=== PATIENT | female | born 1945 ===

== ENCOUNTER 2023-06-22 13:15 | Inpatient (IN) ==
[2023-06-22] MEDS ORDERED: 0.9 % SODIUM CHLORIDE 1,000 ML IV ONE (13:41)
[2023-06-22] MEDS ORDERED: 0.9 % SODIUM CHLORIDE 500 ML IV ONE (13:47)
[2023-06-22 14:06] LABS: POC Calcium, Ionized 1.21 (1.16-1.32); POC Creatinine 1.6 (0.6-1.2); POC Potassium 6.7 (3.3-5.1)
[2023-06-22] MEDS ORDERED: CALCIUM GLUCONATE 4.65 MEQ in DEXTROSE 5% IN WATER 50 ML IV ONE (14:31)
[2023-06-22 14:55] LABS: Basophils # (Auto) 0.07 K/mcL (0.00-0.30); Basophils % (Auto) 0.5 % (0.0-2.0); Eosinophils # (Auto) 0.16 K/mcL (0.00-0.70); Eosinophils % (Auto) 1.2 % (0.0-7.0); Hematocrit 32.4 % (34.1-44.9); Hemoglobin 10.5 g/dL (11.2-15.7); Lymphocytes # (Auto) 1.11 K/mcL (1.50-4.80); Lymphocytes % (Auto) 8.5 % (15.5-49.0); Mean Cell Volume 93.1 fL (80.0-100.0); Mean Corpuscular HGB Conc 32.4 g/dL (31.0-36.0); Mean Platelet Volume 11.3 fL (8.8-12.5); Monocytes # (Auto) 1.31 K/mcL (0.10-0.90); Neutrophils % (Auto) 79.3 % (38.0-78.0); Platelet Count 346 K/mcL (140-440); RBC 3.48 M/mcL (3.59-5.38); Red Cell Distribution Width 14.4 % (11.5-14.5); WBC 13.1 K/mcL (4.5-11.0)
[2023-06-22 16:38] LABS: Appearance,Urine CLOUDY (Clear); Bacteria,Urine MANY /hpf (0); Bilirubin,Urine Negative (Negative); Color,Urine AMBER; Culture Indicated,Urine yes; Glucose,Urine (UA) Negative (Negative); Ketones,Urine Negative (Negative); Leukocyte Esterase,Urine 250 /uL (Negative); Nitrate,Urine POS (Negative); Protein,Urine 30 mg/dL (Negative); Specific Gravity,Urine 1.015 (1.000-1.035); Urine Blood Negative (Negative); Urine Hyaline Cast 28 /lph (0-2); Urine RBC 0 /hpf (0-3); Urine Squamous Epithelial Cell 0 /hpf (0-4); Urine WBC 27 /hpf (0-4); Urobilinogen,Urine Negative
[2023-06-22 16:50] LABS: ALT/SGPT 21 U/L (<40); AST/SGOT 32 U/L (<32); Albumin 2.2 gm/dL (3.2-5.2); Albumin/Globulin Ratio 0.4 (1.0-2.3); Alkaline Phosphatase 89 U/L (39-117); Bilirubin,Total 0.4 mg/dL (0.1-1.0); Blood Urea Nitrogen 47 mg/dL (8-23); Calcium 9.7 mg/dL (8.6-10.4); Carbon Dioxide 18 mmol/L (22-30); Chloride 100 mmol/L (96-108); Globulin 4.9 gm/dL (2.2-3.7); Glomerular Filtration Rate 34; Glucose 384 mg/dL (70-105)
[2023-06-22] MEDS ORDERED: FUROSEMIDE 20 MG/2 ML VIAL IV ONE (16:56)
[2023-06-22] MEDS ORDERED: INSULIN REGULAR, HUMAN 1 UNIT/0.01 ML UNIT IV ONE (16:57)
[2023-06-22] MEDS ORDERED: cefTRIAXone 1 GM VIAL IV ONE (16:59)
[2023-06-22] MEDS ORDERED: FUROSEMIDE 40 MG/4 ML VIAL IV SCH (18:17)
[2023-06-22] MEDS ORDERED: DEXTROSE 31 GM ORAL.SUSP PO PRN (20:52)
[2023-06-22] MEDS ORDERED: DEXTROSE 50% 50 ML VIAL IV PRN (20:52)
[2023-06-22] MEDS ORDERED: ALBUTEROL SULFATE 2.5 MG/3 ML NEBULIZER NEB PRN (20:52)
[2023-06-22] MEDS ORDERED: SENNOSIDES 1 TABLET PO PRN (20:52)
[2023-06-22] MEDS ORDERED: INSULIN GLARGINE, HUMAN 1 UNIT/0.01 ML SQ SCH (21:00)
[2023-06-22] MEDS: DOCUSATE SODIUM 100 MG CAPSULE PO SCH (22:13)
[2023-06-22] MEDS: HYDROcodone/APAP 5/325MG TABLET PO PRN (22:13)
[2023-06-22] MEDS: HEPARIN 5,000 UNIT/ML VIAL SQ SCH (22:13)
[2023-06-22] MEDS: 0.9 % SODIUM CHLORIDE 10 ML SYRINGE IV SCH (22:13)
[2023-06-22] MEDS: INSULIN LISPRO 1 UNIT/0.01 ML UNIT SQ SCH (22:14)
[2023-06-23] MEDS: HYDROcodone/APAP 5/325MG TABLET PO PRN ×5 (02:21→18:01)
[2023-06-23] MEDS: 0.9 % SODIUM CHLORIDE 10 ML SYRINGE IV SCH ×3 (05:26→20:43)
[2023-06-23 06:54] LABS: Basophils # (Auto) 0.07 K/mcL (0.00-0.30); Basophils % (Auto) 0.6 % (0.0-2.0); Eosinophils # (Auto) 0.24 K/mcL (0.00-0.70); Hematocrit 31.3 % (34.1-44.9); Hemoglobin 9.8 g/dL (11.2-15.7); Lymphocytes # (Auto) 1.43 K/mcL (1.50-4.80); Lymphocytes % (Auto) 11.9 % (15.5-49.0); Mean Cell Volume 95.1 fL (80.0-100.0); Mean Corpuscular HGB Conc 31.3 g/dL (31.0-36.0); Mean Platelet Volume 10.3 fL (8.8-12.5); Monocytes # (Auto) 1.49 K/mcL (0.10-0.90); Monocytes % (Auto) 12.4 % (1.0-12.0); Neutrophils % (Auto) 72.6 % (38.0-78.0); Platelet Count 346 K/mcL (140-440); RBC 3.29 M/mcL (3.59-5.38); Red Cell Distribution Width 14.3 % (11.5-14.5)
[2023-06-23] MEDS ORDERED: INSULIN LISPRO 1 UNIT/0.01 ML UNIT SQ SCH (07:30)
[2023-06-23 08:00] LABS: Thyroid Stimulating Hormone 33.95 uIU/mL (0.27-5.01)
[2023-06-23] MEDS: INSULIN LISPRO 1 UNIT/0.01 ML UNIT SQ SCH ×5 (08:05→20:43)
[2023-06-23] MEDS: FUROSEMIDE 40 MG/4 ML VIAL IV SCH ×2 (08:05→08:51)
[2023-06-23 08:16] LABS: Albumin 2.1 gm/dL (3.2-5.2); Blood Urea Nitrogen 51 mg/dL (8-23); Calcium 9.7 mg/dL (8.6-10.4); Carbon Dioxide 20 mmol/L (22-30); Chloride 104 mmol/L (96-108); Glomerular Filtration Rate 22; Glucose 168 mg/dL (70-105); Phosphorous 3.4 mg/dL (2.5-4.5)
[2023-06-23] MEDS: HEPARIN 5,000 UNIT/ML VIAL SQ SCH (08:30)
[2023-06-23] MEDS: DOCUSATE SODIUM 100 MG CAPSULE PO SCH ×2 (08:30→20:42)
[2023-06-23] MEDS: cefTRIAXone 1 GM VIAL IV SCH (08:50)
[2023-06-23 09:31] LABS: Estimated Average Glucose(eAG) 252 mg/dL; Hemoglobin A1C 10.4 % Hgb (4.0-6.0)
[2023-06-23] MEDS: APIXABAN 5 MG TABLET PO SCH ×2 (11:06→20:42)
[2023-06-23] MEDS: ONDANSETRON 4 MG/2 ML VIAL IV PRN (14:39)
[2023-06-23] MEDS: ACETAMINOPHEN 325 MG TABLET PO PRN (17:15)
[2023-06-23] MEDS: ATORVASTATIN 40 MG TABLET PO SCH (20:42)
[2023-06-23] MEDS: INSULIN GLARGINE, HUMAN 1 UNIT/0.01 ML SQ SCH (20:43)
[2023-06-24] MEDS: HYDROcodone/APAP 5/325MG TABLET PO PRN ×4 (00:35→20:50)
[2023-06-24] MEDS: ONDANSETRON 4 MG/2 ML VIAL IV PRN (02:12)
[2023-06-24] MEDS: 0.9 % SODIUM CHLORIDE 10 ML SYRINGE IV SCH ×4 (02:13→20:54)
[2023-06-24 07:12] LABS: Albumin 2.3 gm/dL (3.2-5.2); Blood Urea Nitrogen 57 mg/dL (8-23); Calcium 9.5 mg/dL (8.6-10.4); Carbon Dioxide 19 mmol/L (22-30); Chloride 99 mmol/L (96-108); Glomerular Filtration Rate 17; Glucose 138 mg/dL (70-105)
[2023-06-24 07:33] LABS: Basophils # (Auto) 0.07 K/mcL (0.00-0.30); Basophils % (Auto) 0.6 % (0.0-2.0); Eosinophils # (Auto) 0.38 K/mcL (0.00-0.70); Eosinophils % (Auto) 3.4 % (0.0-7.0); Hematocrit 46.6 % (34.1-44.9); Lymphocytes # (Auto) 1.19 K/mcL (1.50-4.80); Lymphocytes % (Auto) 10.7 % (15.5-49.0); Mean Cell Volume 92.5 fL (80.0-100.0); Mean Corpuscular HGB Conc 32.2 g/dL (31.0-36.0); Mean Platelet Volume 10.8 fL (8.8-12.5); Monocytes # (Auto) 1.09 K/mcL (0.10-0.90); Monocytes % (Auto) 9.8 % (1.0-12.0); Neutrophils % (Auto) 74.7 % (38.0-78.0); Platelet Count 226 K/mcL (140-440); RBC 5.04 M/mcL (3.59-5.38); Red Cell Distribution Width 14.6 % (11.5-14.5); WBC 11.1 K/mcL (4.5-11.0)
[2023-06-24] MEDS: LEVOTHYROXINE 100 MCG TABLET PO SCH (07:44)
[2023-06-24] MEDS: INSULIN LISPRO 1 UNIT/0.01 ML UNIT SQ SCH ×7 (07:44→20:52)
[2023-06-24] MEDS: TORSEMIDE 20 MG TABLET PO SCH (08:32)
[2023-06-24] MEDS: DOCUSATE SODIUM 100 MG CAPSULE PO SCH ×2 (08:32→20:50)
[2023-06-24] MEDS: cefTRIAXone 1 GM VIAL IV SCH (08:32)
[2023-06-24] MEDS: AMIODARONE HCL 200 MG TABLET PO SCH (08:32)
[2023-06-24] MEDS: SERTRALINE 50 MG TABLET PO SCH (08:33)
[2023-06-24] MEDS: APIXABAN 5 MG TABLET PO SCH ×2 (08:34→20:50)
[2023-06-24] MEDS: SODIUM BICARBONATE 650 MG TABLET PO SCH ×2 (15:45→20:50)
[2023-06-24] MEDS: LIDOCAINE PATCH TOPICAL SCH (15:45)
[2023-06-24] MEDS: ACETAMINOPHEN 325 MG TABLET PO PRN (17:53)
[2023-06-24] MEDS: ATORVASTATIN 40 MG TABLET PO SCH (20:50)
[2023-06-24] MEDS: INSULIN GLARGINE, HUMAN 1 UNIT/0.01 ML SQ SCH (20:51)
[2023-06-25] MEDS: 0.9 % SODIUM CHLORIDE 10 ML SYRINGE IV SCH ×3 (05:30→22:04)
[2023-06-25] MEDS: HYDROcodone/APAP 5/325MG TABLET PO PRN ×3 (06:36→21:54)
[2023-06-25 06:56] LABS: Albumin 2.3 gm/dL (3.2-5.2); Blood Urea Nitrogen 64 mg/dL (8-23); Calcium 9.8 mg/dL (8.6-10.4); Carbon Dioxide 19 mmol/L (22-30); Chloride 101 mmol/L (96-108); Glomerular Filtration Rate 19; Glucose 99 mg/dL (70-105); Phosphorous 4.5 mg/dL (2.5-4.5)
[2023-06-25] MEDS: LIDOCAINE PATCH TOPICAL SCH (08:03)
[2023-06-25] MEDS: INSULIN LISPRO 1 UNIT/0.01 ML UNIT SQ SCH ×7 (08:06→22:01)
[2023-06-25] MEDS: SERTRALINE 50 MG TABLET PO SCH (10:24)
[2023-06-25] MEDS: DOCUSATE SODIUM 100 MG CAPSULE PO SCH ×2 (10:24→21:55)
[2023-06-25] MEDS: APIXABAN 5 MG TABLET PO SCH ×2 (10:24→21:55)
[2023-06-25] MEDS: SODIUM BICARBONATE 650 MG TABLET PO SCH ×3 (10:25→21:55)
[2023-06-25] MEDS: AMIODARONE HCL 200 MG TABLET PO SCH (10:25)
[2023-06-25] MEDS: TORSEMIDE 20 MG TABLET PO SCH (10:26)
[2023-06-25] MEDS: LEVOTHYROXINE 100 MCG TABLET PO SCH (10:26)
[2023-06-25] MEDS: CEPHALEXIN 500 MG CAPSULE PO SCH ×4 (10:26→22:04)
[2023-06-25] MEDS: ATORVASTATIN 40 MG TABLET PO SCH (21:55)
[2023-06-25] MEDS: INSULIN GLARGINE, HUMAN 1 UNIT/0.01 ML SQ SCH (22:01)
[2023-06-26] MEDS: ONDANSETRON 4 MG/2 ML VIAL IV PRN ×3 (00:11→12:05)
[2023-06-26] MEDS: HYDROcodone/APAP 5/325MG TABLET PO PRN ×4 (03:17→20:19)
[2023-06-26] MEDS: 0.9 % SODIUM CHLORIDE 10 ML SYRINGE IV SCH ×3 (07:03→20:20)
[2023-06-26] MEDS: INSULIN LISPRO 1 UNIT/0.01 ML UNIT SQ SCH ×7 (08:38→20:19)
[2023-06-26] MEDS ORDERED: FUROSEMIDE 40 MG/4 ML VIAL IV ONE (08:39)
[2023-06-26] MEDS ORDERED: ALBUMIN HUMAN 12.5 GM/50 ML VIAL IV ONE (08:39)
[2023-06-26] MEDS: AMIODARONE HCL 200 MG TABLET PO SCH (08:58)
[2023-06-26] MEDS: SODIUM BICARBONATE 650 MG TABLET PO SCH ×3 (08:58→20:20)
[2023-06-26] MEDS: SERTRALINE 50 MG TABLET PO SCH (08:58)
[2023-06-26] MEDS: DOCUSATE SODIUM 100 MG CAPSULE PO SCH ×2 (08:58→20:19)
[2023-06-26] MEDS: LIDOCAINE PATCH TOPICAL SCH (08:58)
[2023-06-26] MEDS: APIXABAN 5 MG TABLET PO SCH ×2 (08:59→20:19)
[2023-06-26] MEDS: LEVOTHYROXINE 100 MCG TABLET PO SCH (08:59)
[2023-06-26] MEDS: CEPHALEXIN 500 MG CAPSULE PO SCH ×4 (08:59→20:33)
[2023-06-26 09:35] LABS: ALT/SGPT 19 U/L (<40); AST/SGOT 29 U/L (<32); Albumin 2.3 gm/dL (3.2-5.2); Albumin/Globulin Ratio 0.5 (1.0-2.3); Alkaline Phosphatase 87 U/L (39-117); Bilirubin,Direct < 0.2 mg/dL (0-0.3); Bilirubin,Total 0.3 mg/dL (0.1-1.0); Blood Urea Nitrogen 65 mg/dL (8-23); Calcium 9.3 mg/dL (8.6-10.4); Carbon Dioxide 22 mmol/L (22-30); Chloride 98 mmol/L (96-108); Globulin 4.3 gm/dL (2.2-3.7); Glomerular Filtration Rate 24; Glucose 118 mg/dL (70-105); Lactate Dehydrogenase 162 U/L (135-225); Phosphorous 4.1 mg/dL (2.5-4.5); Triglycerides 52 mg/dL (<150); Uric Acid 10.5 mg/dL (2.5-8.0)
[2023-06-26] MEDS ORDERED: SODIUM POLYSTYRENE SULFONATE 15 GM/60 ML SUSPENSION PO ONE (09:48)
[2023-06-26] MEDS: ATORVASTATIN 40 MG TABLET PO SCH (20:19)
[2023-06-26] MEDS: INSULIN GLARGINE, HUMAN 1 UNIT/0.01 ML SQ SCH (20:19)
[2023-06-27] MEDS: ONDANSETRON 4 MG/2 ML VIAL IV PRN ×3 (05:06→15:55)
[2023-06-27] MEDS: 0.9 % SODIUM CHLORIDE 10 ML SYRINGE IV SCH ×3 (05:07→20:38)
[2023-06-27] MEDS: HYDROcodone/APAP 5/325MG TABLET PO PRN ×4 (05:17→20:25)
[2023-06-27] MEDS: LEVOTHYROXINE 100 MCG TABLET PO SCH (07:28)
[2023-06-27] MEDS: ACETAMINOPHEN 325 MG TABLET PO PRN ×2 (07:28→16:51)
[2023-06-27] MEDS: INSULIN LISPRO 1 UNIT/0.01 ML UNIT SQ SCH ×7 (07:29→20:37)
[2023-06-27 09:06] LABS: ALT/SGPT 18 U/L (<40); AST/SGOT 32 U/L (<32); Albumin 2.3 gm/dL (3.2-5.2); Albumin/Globulin Ratio 0.5 (1.0-2.3); Alkaline Phosphatase 88 U/L (39-117); Bilirubin,Direct < 0.2 mg/dL (0-0.3); Bilirubin,Total 0.4 mg/dL (0.1-1.0); Blood Urea Nitrogen 61 mg/dL (8-23); Calcium 8.9 mg/dL (8.6-10.4); Carbon Dioxide 22 mmol/L (22-30); Chloride 99 mmol/L (96-108); Globulin 4.3 gm/dL (2.2-3.7); Glomerular Filtration Rate 29; Glucose 176 mg/dL (70-105); Lactate Dehydrogenase 151 U/L (135-225); Phosphorous 3.4 mg/dL (2.5-4.5); Triglycerides 51 mg/dL (<150); Uric Acid 10.4 mg/dL (2.5-8.0)
[2023-06-27] MEDS ORDERED: SENNOSIDES 1 TABLET PO ONE (09:35)
[2023-06-27] MEDS ORDERED: POLYETHYLENE GLYCOL 3350 17 GM PACKET PO ONE ×3 (09:40→12:21)
[2023-06-27] MEDS: CEPHALEXIN 500 MG CAPSULE PO SCH ×5 (09:52→20:31)
[2023-06-27] MEDS: TORSEMIDE 20 MG TABLET PO SCH (09:52)
[2023-06-27] MEDS: SERTRALINE 50 MG TABLET PO SCH (09:52)
[2023-06-27] MEDS: APIXABAN 5 MG TABLET PO SCH ×2 (09:53→20:26)
[2023-06-27] MEDS: AMIODARONE HCL 200 MG TABLET PO SCH (09:53)
[2023-06-27] MEDS: DOCUSATE SODIUM 100 MG CAPSULE PO SCH ×2 (09:54→20:38)
[2023-06-27] MEDS: LIDOCAINE PATCH TOPICAL SCH (09:54)
[2023-06-27] MEDS: ATORVASTATIN 40 MG TABLET PO SCH (20:26)
[2023-06-27] MEDS: INSULIN GLARGINE, HUMAN 1 UNIT/0.01 ML SQ SCH (20:37)
[2023-06-28] MEDS: HYDROcodone/APAP 5/325MG TABLET PO PRN (00:45)
[2023-06-28] MEDS: 0.9 % SODIUM CHLORIDE 10 ML SYRINGE IV SCH (04:29)
[2023-06-28] MEDS: ONDANSETRON 4 MG/2 ML VIAL IV PRN (06:53)
[2023-06-28] MEDS: LEVOTHYROXINE 100 MCG TABLET PO SCH (06:53)
[2023-06-28] MEDS: INSULIN LISPRO 1 UNIT/0.01 ML UNIT SQ SCH ×2 (07:01→07:03)
[2023-06-28] MEDS: APIXABAN 5 MG TABLET PO SCH (08:27)
[2023-06-28] MEDS: DOCUSATE SODIUM 100 MG CAPSULE PO SCH (08:27)
[2023-06-28] MEDS: AMIODARONE HCL 200 MG TABLET PO SCH (08:27)
[2023-06-28] MEDS: TORSEMIDE 20 MG TABLET PO SCH (08:27)
[2023-06-28] MEDS: SERTRALINE 50 MG TABLET PO SCH (08:29)
[2023-06-28] MEDS: CEPHALEXIN 500 MG CAPSULE PO SCH (11:14)
[2023-06-28] MEDS: LIDOCAINE PATCH TOPICAL SCH (11:14)
== END 2023-06-28 11:19 | DRG 189 ==
LOC: ED 13:15 → ICU 20:47
PROVIDERS: ADMIT Internal Medicine; ATTEND Internal Medicine